=== PATIENT | male | born 1990 | race Caucasian/White ===

== ENCOUNTER 2020-08-07 17:26 | Emergency (ER) | payer SELFPAY ==
[2020-08-07 17:41] VITALS: BP 152/65; PULSE 118; RESP 18; TEMP 37.5; O2SAT 95; BMI 30.9
--- NOTE | 2020-08-07 17:53 | XRR_ITS ---
PROCEDURE INFORMATION: Exam: XR Chest Exam date and time: 08/07/2020 6:00 PM Age: 30 years old Clinical indication: Fever TECHNIQUE: Imaging protocol: XR of the chest. Views: 1 view. COMPARISON: No relevant prior studies available. FINDINGS: Lungs: Unremarkable. No consolidation. Pleural spaces: Unremarkable. No pleural effusion. No pneumothorax. Heart/Mediastinum: Unremarkable. No cardiomegaly. Bones/joints: Unremarkable. XR/XR chest 1V portable [id number] IMPRESSION: No acute findings.
--- NOTE | 2020-08-07 18:10 | ED_ITS ---
HPI - General Adult General: Chief complaint: General Medical Stated complaint: DIZZY, JUST FEELS SICK Time Seen by Provider: 08/07/20 17:44 Source: patient and RN notes reviewed Mode of arrival: ambulatory Limitations: no limitations History of Present Illness: HPI narrative: 30-year-old male reports he is an IV drug abuser. He reports shooting up in his right medial ankle. He does reuse needles although he does not share them with anyone else. He reports to me he has a history of MSSA infection in his hip. On arrival the patient reports not feeling well for the last 5 days. He was noted to have a low-grade temperature and tachycardia on arrival. His last use of heroin/methamphetamine was last night. He reports that he is used to not feeling well from injecting drugs but this feels like something different. Unrelated to his main concern, he has a blister on his lower lip that he believes is from biting his lip while he is high. Patient has lost his left great toenail and right second toenail. He is unsure why. He feels like he has some swelling on the top of both of his feet. He denies any sore or swollen joints. He does not recall having night s weats. He has dentures and does not report any recent dental procedures. Patient denies cough, shortness of breath, abdominal pain, dysuria, diarrhea, coughing, chest pain. Associated symptoms: Reports diaphoresis; Deny chest pain, dyspnea, headache(s), nausea, palpitations, syncope or vomiting Review of Systems General: Reports: 10 or more systems reviewed and unremarkable except in HPI and below and Other (Review of systems is negative except as documented below.) Const: Reports: chills, body aches, fatigue and diaphoresis ENMT: Reports: oral sores and dry mouth; Denies: throat pain, bleeding gums or dental pain Card: Reports: swelling of feet/ankles; Denies: chest pain, palpitations, irregular heart rhythm, edema, lightheadedness or syncope Resp: Denies: dyspnea, productive cough, non-productive cough, pain on inspiration or hemoptysis GI: Denies: abdominal pain, nausea, vomiting, hematemesis, diarrhea or constipation : Denies: flank pain, dysuria, urinary frequency or urinary urgency Musc: Denies: neck pain, back pain, extremity pain, extremity swelling, joint pain, joint swelling, joint redness, joint warmth, limited range of motion or muscle weakness Skin/Breast: Reports: other (Patient points to a few scabs on the right medial ankle where he has inject) Neuro: Denies: headache(s), weakness in extremities, difficulty walking or seizure-like activity Psych: Reports: anxiety and irritability James/Lymph: Denies: easy bruising, easy bleeding, petechiae, purpura or enlarged lymph nodes Physical Exam Const: COMMON NORMALS: average body habitus, no limitations, alert and well nourished EXAM LIMITATIONS: no altered mental status GENERAL APPEARANCE: cooperative, well kempt, well developed and anxious NUTRITIONAL APPEARANCE: overweight ORIENTATION/CONSCIOUSNESS: Yes awake; not confused HENMT: COMMON NORMALS: normocephalic, atraumatic, external ears normal and Normal external nose present HEAD & SCALP: normal to inspection, normocephalic and atraumatic FACE & SINUS: normal facial exam and face symmetric NOSE: Normal external nose present EXTERNAL EAR: Yes external ears normal MOUTH: Normal oral and palatal mucosa present and tongue normal; lip not normal (blister bottom lip), no drooling, no mouth trauma, no muffled voice and no trismus TEETH & GINGIVA: Yes dentures THROAT: posterior oropharynx normal, tonsils normal and uvula midline Eye: COMMON NORMALS: EOMs intact bilaterally and conjunctivae normal GENERAL EYE: appearance normal, both eyes and all related structures CONJUNCTIVA: Yes conjunctivae normal Neck/C-Spine: COMMON NORMALS: no meningeal signs and no JVD GENERAL: Yes normal visual inspection and Yes trachea midline Resp: COMMON NORMALS: normal respiratory effort, No use of accessory muscles and clear to auscultation bilaterally EFFORT & INSPECTION: Yes able to speak in complete sentences and Yes symmetric chest movement AUSCULTATION: clear to auscultation bilaterally Cardio: COMMON NORMALS: no JVD and regular rhythm RATE: tachycardic RHYTHM: regular rhythm PERIPHERAL PULSES: radial pulses present GI: COMMON NORMALS: Soft to palpation INSPECTION: Yes normal to inspection PALPATION: Yes Soft to palpation, No Tenderness to palpation present (GI) and No Guarding due to palpation present (GI) Back/Pelvis: COMMON NORMALS: thoraco-lumbar ROM normal Extremity: COMMON NORMALS: normal to inspection GENERAL: Yes normal exam except as noted Neuro: COMMON NORMALS: moves all extremities, no focal motor deficits and no sensory deficits noted SENSORIUM/ORIENTATION: Yes alert and No Orientation impaired MENINGEAL SIGNS: Yes no meningeal signs CRANIAL NERVES: Yes CN normal except as noted SPEECH: speech normal Psych: COMMON NORMALS: mental status grossly normal, Normal thought process present, cooperative and normal affect APPEARANCE: Yes well kempt ATTITUDE: Yes engaged ACTIVITY/MOTOR BEHAVIOR: Yes psychomotor agitation and Yes restless SPEECH: Yes rapid THOUGHT PROCESS: Normal thought process present THOUGHT CONTENT: Yes Normal thought content present Skin: COMMON NORMALS: no rashes or lesions noted, turgor normal and no jaundice GENERAL SKIN EXAM: no rashes or lesions noted and turgor normal Course Vital Signs: Vital signs: Vital Signs Temperature 99.5 F 08/07/20 17:41 Pulse Rate 115 H 08/07/20 18:55 Respiratory Rate 17 08/07/20 18:55 Blood Pressure 152/65 08/07/20 17:41 Pulse Oximetry 95 08/07/20 18:55 MDM - General Adult MDM Narrative: Medical decision making narrative: Patient's report of not feeling well is vague and and there is a large differential diagnosis. The patient is an IV drug abuser with tachycardia and low-grade fever. The low- grade fever could simply be from sympathomimetic toxidrome. However, it may also be from bacteremia, endocarditis, HIV, hepatitis, coronavirus, and many other etiologies. The patient has consented to septic work-up and to include a hepatitis and HIV panel. Lab Data: Attestation: I reviewed the patient's lab results. Labs: Lab Results 08/07/20 08/07/20 08/07/20 Range/Units 18:30 18:30 18:30 WBC 9.5 (4.0-10.0) 10^3/ uL RBC 4.22 (4.1-5.3) 10^6/u L Hgb 12.4 (11.7-16.6) g/dL Hct 37.2 L (42.0-52.0) % MCV 88.2 (80-94) fL MCH 29.4 (28.0-34.0) pg MCHC 33.3 (30.0-36.0) g/dL RDW 12.8 (12.1-15.1) % Plt Count 218 (130-400) 10^3/c mm MPV 10.1 (7.4-10.4) fL Neut % (Auto) 80.6 % Lymph % (Auto) 10.2 % [place] % (Auto) 7.7 % Eos % (Auto) 0.9 % Baso % (Auto) 0.3 % Neut # (Auto) 7.68 (1.8-7.7) 10^3/u L Lymph # (Auto) 1.0 (0.8-4.8) 10^3/u L [place] # (Auto) 0.7 (0.2-0.9) 10^3/u L Eos # (Auto) 0.1 (0.0-0.8) 10^3/u L Baso # (Auto) 0.0 (0.0-0.1) 10^3/u L Nucleated RBC % (a uto) 0 % Nucleated RBCs # 0.0 /100WBC Sodium 131 L (136-145) mmol/L Potassium 3.9 (3.5-5.1) mmol/L Chloride 92 L (98-107) mmol/L Carbon Dioxide 23 (22-29) mmol/L Anion Gap 19.9 H (5-19) BUN 16 (6-20) mg/dL Creatinine 0.8 (0.7-1.2) mg/dL GFR Calculation 113.5 (90-130) mL/min Glucose 75 (65-115) mg/dL Calculated Osmolal ity 272 L (285-295) mOsm/k g Lactic Acid 1.2 (0.5-2.2) mmol/L Calcium 8.7 (8.5-10.5) mg/dL Total Bilirubin 1.6 H (0.15-1.2) mg/dL AST 79 H (0-40) U/L ALT 72 H (0-41) U/L Alkaline Phosphata se 104 (40-130) IU/L Total Protein 6.9 (6.6-8.7) g/dL Albumin 4.1 (3.5-5.2) g/dL Globulin 2.8 (1.3-4.6) g/dL HIV 1&2 Ab & HIV 1 Ag (Non-Reactiv) HIV 1&2 Antibody (Non-Reactiv) 08/07/20 Range/Units 18:30 WBC (4.0-10.0) 10^3/ uL RBC (4.1-5.3) 10^6/u L Hgb (11.7-16.6) g/dL Hct (42.0-52.0) % MCV (80-94) fL MCH (28.0-34.0) pg MCHC (30.0-36.0) g/dL RDW (12.1-15.1) % Plt Count (130-400) 10^3/c mm MPV (7.4-10.4) fL Neut % (Auto) % Lymph % (Auto) % [place] % (Auto) % Eos % (Auto) % Baso % (Auto) % Neut # (Auto) (1.8-7.7) 10^3/u L Lymph # (Auto) (0.8-4.8) 10^3/u L [place] # (Auto) (0.2-0.9) 10^3/u L Eos # (Auto) (0.0-0.8) 10^3/u L Baso # (Auto) (0.0-0.1) 10^3/u L Nucleated RBC % (a uto) % Nucleated RBCs # /100WBC Sodium (136-145) mmol/L Potassium (3.5-5.1) mmol/L Chloride (98-107) mmol/L Carbon Dioxide (22-29) mmol/L Anion Gap (5-19) BUN (6-20) mg/dL Creatinine (0.7-1.2) mg/dL GFR Calculation (90-130) mL/min Glucose (65-115) mg/dL Calculated Osmolal ity (285-295) mOsm/k g Lactic Acid (0.5-2.2) mmol/L Calcium (8.5-10.5) mg/dL Total Bilirubin (0.15-1.2) mg/dL AST (0-40) U/L ALT (0-41) U/L Alkaline Phosphata se (40-130) IU/L Total Protein (6.6-8.7) g/dL Albumin (3.5-5.2) g/dL Globulin (1.3-4.6) g/dL HIV 1&2 Ab & HIV 1 Ag Non-reactive (Non-Reactiv) HIV 1&2 Antibody Non-reactive (Non-Reactiv) Imaging Data^: CXR: Attestation: I personally reviewed and interpreted this imaging study as follows: My impression: Slightly rotated, no acute pathology noted, no infiltrates to suggest cause of fever Discharge Plan Discharge Prescriptions: No Action duloxetine [Cymbalta] 60 mg capsule,delayed release(DR/EC) 60 mg PO BID RF: 0 gabapentin 600 mg tablet 600 mg PO BID RF: 0 olanzapine [Zyprexa] 5 mg tablet 5 mg PO DAILY RF: 0 trazodone 50 mg tablet 50 mg PO DAILY RF: 0 lorazepam [Ativan] 2 mg tablet 2 mg PO Q8H PRN (Reason: Anxiety) RF: 0 buspirone 30 mg tablet 40 mg PO ONCE RF: 0 Coding Level of Care Code ED Music Instructor for John Fwd Exam Comprehensive
[2020-08-07] MEDS: acetaminophen 500 mg Tablet 1000 MG PO (18:48)
[2020-08-07 18:52] LABS: Basophils % 0.3 %; Eosinophils # 0.1 10^3/uL (0.0-0.8); Eosinophils % 0.9 %; Hematocrit 37.2 % (42.0-52.0); Hemoglobin 12.4 g/dL (11.7-16.6); Lymphocytes % 10.2 %; Mean Corpuscular HGB Conc 33.3 g/dL (30.0-36.0); Mean Corpuscular Hemoglobin 29.4 pg (28.0-34.0); Mean Corpuscular Volume 88.2 fL (80-94); Mean Platelet Volume 10.1 fL (7.4-10.4); Monocytes # 0.7 10^3/uL (0.2-0.9); Monocytes % 7.7 %; Neutrophils # 7.68 10^3/uL (1.8-7.7); Neutrophils % 80.6 %; Nucleated Red Blood Cells % 0 %; Platelet Count 218 10^3/cmm (130-400); Red Blood Count 4.22 10^6/uL (4.1-5.3); Red Cell Distribution Width 12.8 % (12.1-15.1); White Blood Count 9.5 10^3/uL (4.0-10.0)
[2020-08-07 18:55] VITALS: PULSE 115; RESP 17; O2SAT 95
[2020-08-07 19:12] LABS: Alanine Aminotransferase 72 U/L (0-41); Albumin Level 4.1 g/dL (3.5-5.2); Alkaline Phosphatase 104 IU/L (40-130); Anion Gap 19.9 (5-19); Aspartate Amino Transferase 79 U/L (0-40); Blood Urea Nitrogen 16 mg/dL (6-20); Calcium 8.7 mg/dL (8.5-10.5); Carbon Dioxide 23 mmol/L (22-29); Chloride 92 mmol/L (98-107); Globulin 2.8 g/dL (1.3-4.6); Glomerular Filtration Rate 113.5 mL/min (90-130); Glucose 75 mg/dL (65-115); Lactic Sepsis W/Reflex 1.2 mmol/L (0.5-2.2); Osmolality Calculated 272 mOsm/kg (285-295); Potassium 3.9 mmol/L (3.5-5.1); Sodium 131 mmol/L (136-145); Total Bilirubin 1.6 mg/dL (0.15-1.2); Total Protein 6.9 g/dL (6.6-8.7)
[2020-08-07 19:28] LABS: HIV 1 & 2 Antibody Non-Reactive (Non-Reactiv); HIV 1 & 2 Antigen Non-Reactive (Non-Reactiv)
--- NOTE | 2020-08-07 19:38 | W.ED.GENADLT ---
HPI - General Adult General: Chief complaint: General Medical Stated complaint: DIZZY, JUST FEELS SICK Time Seen by Provider: 08/07/20 17:44 Source: patient and RN notes reviewed Mode of arrival: ambulatory Limitations: no limitations Course ED course: Patient continues to show signs of sympathomimetic toxidrome included rapid pressured speech, physical restlessness, tachycardia, mydriasis, etc. WBC normal. ASt/ALT mildly elevated. Pending is COVID and Hepatitis panel. Patient getting 2L of LR and dose of vancomycin. Blood cultures pending. His low grade fever could simply be meth abuse rather than acute infection. Plan to d/c on antibiotics after IVF. Vital Signs: Vital signs: Vital Signs Temperature 99.5 F 08/07/20 17:41 Pulse Rate 115 H 08/07/20 18:55 Respiratory Rate 17 08/07/20 18:55 Blood Pressure 152/65 08/07/20 17:41 Pulse Oximetry 95 08/07/20 18:55 MDM - General Adult Lab Data: Attestation: I reviewed the patient's lab results. Labs: Lab Results 08/07/20 08/07/20 08/07/20 Range/Units 18:30 18:30 18:30 WBC 9.5 (4.0-10.0) 10^3/ uL RBC 4.22 (4.1-5.3) 10^6/u L Hgb 12.4 (11.7-16.6) g/dL Hct 37.2 L (42.0-52.0) % MCV 88.2 (80-94) fL MCH 29.4 (28.0-34.0) pg MCHC 33.3 (30.0-36.0) g/dL RDW 12.8 (12.1-15.1) % Plt Count 218 (130-400) 10^3/c mm MPV 10.1 (7.4-10.4) fL Neut % (Auto) 80.6 % Lymph % (Auto) 10.2 % [place] % (Auto) 7.7 % Eos % (Auto) 0.9 % Baso % (Auto) 0.3 % Neut # (Auto) 7.68 (1.8-7.7) 10^3/u L Lymph # (Auto) 1.0 (0.8-4.8) 10^3/u L [place] # (Auto) 0.7 (0.2-0.9) 10^3/u L Eos # (Auto) 0.1 (0.0-0.8) 10^3/u L Baso # (Auto) 0.0 (0.0-0.1) 10^3/u L Nucleated RBC % (a uto) 0 % Nucleated RBCs # 0.0 /100WBC Sodium 131 L (136-145) mmol/L Potassium 3.9 (3.5-5.1) mmol/L Chloride 92 L (98-107) mmol/L Carbon Dioxide 23 (22-29) mmol/L Anion Gap 19.9 H (5-19) BUN 16 (6-20) mg/dL Creatinine 0.8 (0.7-1.2) mg/dL GFR Calculation 113.5 (90-130) mL/min Glucose 75 (65-115) mg/dL Calculated Osmolal ity 272 L (285-295) mOsm/k g Lactic Acid 1.2 (0.5-2.2) mmol/L Calcium 8.7 (8.5-10.5) mg/dL Total Bilirubin 1.6 H (0.15-1.2) mg/dL AST 79 H (0-40) U/L ALT 72 H (0-41) U/L Alkaline Phosphata se 104 (40-130) IU/L Total Protein 6.9 (6.6-8.7) g/dL Albumin 4.1 (3.5-5.2) g/dL Globulin 2.8 (1.3-4.6) g/dL HIV 1&2 Ab & HIV 1 Ag (Non-Reactiv) HIV 1&2 Antibody (Non-Reactiv) 08/07/20 Range/Units 18:30 WBC (4.0-10.0) 10^3/ uL RBC (4.1-5.3) 10^6/u L Hgb (11.7-16.6) g/dL Hct (42.0-52.0) % MCV (80-94) fL MCH (28.0-34.0) pg MCHC (30.0-36.0) g/dL RDW (12.1-15.1) % Plt Count (130-400) 10^3/c mm MPV (7.4-10.4) fL Neut % (Auto) % Lymph % (Auto) % [place] % (Auto) % Eos % (Auto) % Baso % (Auto) % Neut # (Auto) (1.8-7.7) 10^3/u L Lymph # (Auto) (0.8-4.8) 10^3/u L [place] # (Auto) (0.2-0.9) 10^3/u L Eos # (Auto) (0.0-0.8) 10^3/u L Baso # (Auto) (0.0-0.1) 10^3/u L Nucleated RBC % (a uto) % Nucleated RBCs # /100WBC Sodium (136-145) mmol/L Potassium (3.5-5.1) mmol/L Chloride (98-107) mmol/L Carbon Dioxide (22-29) mmol/L Anion Gap (5-19) BUN (6-20) mg/dL Creatinine (0.7-1.2) mg/dL GFR Calculation (90-130) mL/min Glucose (65-115) mg/dL Calculated Osmolal ity (285-295) mOsm/k g Lactic Acid (0.5-2.2) mmol/L Calcium (8.5-10.5) mg/dL Total Bilirubin (0.15-1.2) mg/dL AST (0-40) U/L ALT (0-41) U/L Alkaline Phosphata se (40-130) IU/L Total Protein (6.6-8.7) g/dL Albumin (3.5-5.2) g/dL Globulin (1.3-4.6) g/dL HIV 1&2 Ab & HIV 1 Ag Non-reactive (Non-Reactiv) HIV 1&2 Antibody Non-reactive (Non-Reactiv) Imaging Data^: CXR: Radiologist's impression: Neg Discharge Plan Discharge Patient Disposition: Home Clinical Impression: Adverse reaction to sympathomimetics, Low grade fever, Transaminitis Condition: Stable Prescriptions: New doxycycline monohydrate 100 mg tablet 100 mg PO BID 10 Days Qty: 20 RF: 0 No Action duloxetine [Cymbalta] 60 mg capsule,delayed release(DR/EC) 60 mg PO BID RF: 0 gabapentin 600 mg tablet 600 mg PO BID RF: 0 olanzapine [Zyprexa] 5 mg tablet 5 mg PO DAILY RF: 0 trazodone 50 mg tablet 50 mg PO DAILY RF: 0 lorazepam [Ativan] 2 mg tablet 2 mg PO Q8H PRN (Reason: Anxiety) RF: 0 buspirone 30 mg tablet 40 mg PO ONCE RF: 0 Discharge Diet: Usual diet Discharge Activity: Resume usual activity Patient Instructions: Opioid Safety, Methamphetamine Abuse (ED), Fever - Adult Activity Restrictions/Additional Instructions: 1) Take antibiotics as prescribed. 2) Make a follow-up appointment in one 3-5 days to discuss results of your hepatitis panel and blood cultures. 3.) Stop using drugs, especially in the veins as it is a huge risk factor for serious infections. 4.) Return to ER if getting worse. Coding Level of Care Code ED Dry Cleaning Teacher for John Lyn
[2020-08-07 20:27] LABS: SARS Covid-2 Antigen Negative (Negative)
[2020-08-07 20:32] VITALS: BP 141/81; PULSE 110; RESP 18; O2SAT 97
[2020-08-07 21:19] VITALS: BP 139/68; PULSE 105; RESP 17; O2SAT 96
[2020-08-07 22:01] LABS: Hepatitis A Antibody IgM Non-Reactive (Nonreactive); Hepatitis B Core AB, Total Non-Reactive (Nonreactive); Hepatitis B Surface AB 9.1 (11.5-1000); Hepatitis B Surface Antigen Non-Reactive (Nonreactive); Hepatitis C Virus Antibody Non-Reactive (Nonreactive)
--- NOTE | 2020-08-08 10:23 | DCPLANNER ---
client service and consulting manager had message to speak with patient about getting established with a primary care physician. client service and consulting manager spoke with patient, he stated that he did want help in getting established with a primary care physician but that he does not have any insurance at this time. client service and consulting manager offered to mail patient the financial analyst intern paperwork for the hospital to fill out and turn back in. client service and consulting manager explained to patient that case advocate could schedule a follow up appointment with a primary care physician at this time or patient could wait until he gets the financial analyst intern paperwork filled out and see where he is with financial analyst intern and then schedule a follow up appointment. Patient stated that he would fill out the paperwork and see where he is at before scheduling an appointment. client service and consulting manager will mail patient both of the financial analyst intern applications to fill out and turn in.
== END 2020-08-07 21:15 | disposition home or self-care (01) ==
PROVIDERS: Emergency Provider Emergency Medicine
DX: R42 Dizziness and giddiness (principal)
CPT/HCPCS: 71045; 80053; 83605; 85025; 86705; 86706; 86709; 86803; 87040; 87340; 87426; 87641; 87806; 96365; 96366; 99284; J3370; J7040

== ENCOUNTER → 2020-08-15 10:56 | Outpatient (BNVA) | payer OTHER, SELFPAY | PROVIDERS: Visit Provider Nurse Practitioner Psychiatric/Mental Health | DX: Z79.899 Other long term (current) drug therapy (principal) | CPT/HCPCS: 80061; 83036 ==

== ENCOUNTER 2020-10-05 13:05 | Emergency (ER) | payer SELFPAY ==
[2020-10-05 13:12] VITALS: BP 140/84; PULSE 118; RESP 15; TEMP 36.7; O2SAT 95; BMI 30.3
[2020-10-05 16:18] VITALS: O2SAT 97
--- NOTE | 2020-10-05 17:06 | W.ED.SKABFB ---
HPI - Skin/Abscess/Foreign Bdy General: Chief complaint: Skin/Abscess/Foreign Body Stated complaint: SWOLLEN LEGS AND FEET Time Seen by Provider: 10/05/20 13:23 History of Present Illness: HPI narrative: The patient is a 30-year-old male past medical history of IV meth injector comes to the ER complaining of swelling in his feet, cellulitis, and scabs. He is worried he has a blood clot. He says he ran out of vein so he found an artery in his foot and started injecting it. He points to his dorsalis pedis bilaterally which has scabs there. He has clear cellulitis to his feet tracking up his legs. The redness started a day and a half ago he says MD complaint: rash Onset (ago): hour(s) (36) Location: L foot and R foot Severity: moderate Quality: burning and sharp Review of Systems General: Reports: 10 or more systems reviewed and unremarkable except in HPI and below Const: Denies: fatigue Eyes: Denies: change in vision, blurry vision or eye redness ENMT: Denies: throat pain, swelling of lips/tongue, ear or mastoid pain or nasal congestion Card: Denies: chest pain, palpitations, irregular heart rhythm, edema, dyspnea on exertion or orthopnea Resp: Denies: dyspnea, productive cough or non-productive cough GI: Denies: abdominal pain, diarrhea or GI cramping : Denies: flank pain, urinary frequency or urinary urgency Musc: Denies: neck pain, back pain, extremity pain, joint pain, joint redness, limited range of motion or muscle weakness Skin/Breast: Reports: rash, pruritus, erythema and sores; Denies: skin pain or skin tenderness Neuro: Denies: headache(s), numbness in extremities, weakness in extremities, sensory changes, difficulty walking, dizziness, confusion or Slurred speech present Psych: Denies: anxiety or depression Endo: Denies: polyuria All/Imm: Denies: urticaria, throat swelling or tongue swelling [facility] ED PFSH: Medical History (Updated 10/05/20 @ 19:57 by Jamison Norris MD) Generalized anxiety disorder Major depressive disorder, recurrent severe without psychotic features Opioid dependence, in remission Sustained remission, last use prior to November 2018 Other stimulant dependence, in remission Methamphetamines, IV use, in early remission, last use 08/06/20 Social History (Updated 08/15/20 @ 09:38 by Brenda Mac LPN) Smoking and tobacco status: current every day smoker e-cigarettes E-Cigarette Details: vaporizer device E-cig/vape details: 6mg per 100ml every 2 weeks Quit status (tobacco): not considering quitting Second hand smoke exposure: No Physical Exam Narrative: EXAM NARRATIVE: Patient fidgets and cannot hold still likely from methamphetamine chronic abuse. Const: COMMON NORMALS: no acute distress, average body habitus, patient oriented x3, no limitations, alert and well nourished GENERAL APPEARANCE: cooperative, well developed and disheveled ORIENTATION/CONSCIOUSNESS: Yes awake, Yes oriented to person, Yes oriented to place and Yes oriented to time HENMT: COMMON NORMALS: normocephalic, external ears normal and Normal external nose present HEAD & SCALP: normal to inspection and normocephalic NOSE: Normal external nose present EXTERNAL EAR: Yes external ears normal MOUTH: Normal oral and palatal mucosa present THROAT: posterior oropharynx normal Eye: COMMON NORMALS: Equal, round and reactive pupils present and EOMs intact bilaterally GENERAL EYE: appearance normal, both eyes and all related structures PUPIL: Yes Equal, round and reactive pupils present Neck/C-Spine: COMMON NORMALS: full ROM, no lymphadenopathy, no meningeal signs and no JVD GENERAL: Yes normal visual inspection Lymph: LYMPHATIC: no lymphadenopathy noted Chest: COMMONS NORMALS: normal inspection of the chest and normal palpation of entire chest wall Resp: COMMON NORMALS: normal respiratory effort, No retractions, No use of accessory muscles, clear to auscultation bilaterally and percussion normal EFFORT & INSPECTION: Yes able to speak in complete sentences AUSCULTATION: clear to auscultation bilaterally PERCUSSION: percussion normal Cardio: COMMON NORMALS: no JVD, regular rate, regular rhythm, S1 normal heart sound present, S2 normal heart sound present and Peripheral pulses 2+ throughout RATE: regular rate RHYTHM: regular rhythm HEART SOUNDS: S1 normal heart sound present and S2 normal heart sound present PERIPHERAL PULSES: Peripheral pulses 2+ throughout GI: COMMON NORMALS: Normal to inspection, nondistended, normoactive bowel sounds present, Soft to palpation, non-tender and no masses INSPECTION: Yes normal to inspection PALPATION: Yes Soft to palpation : COMMON NORMALS: Yes no CVA tenderness BLADDER/KIDNEY EXAM: Yes no CVA tenderness Back/Pelvis: COMMON NORMALS: no CVA tenderness, thoracic and lumbar spine normal to inspection, no thoracic nor lumbar tenderness and thoraco-lumbar ROM normal Extremity: COMMON NORMALS: normal to inspection, full ROM, capillary refill normal, no joint enlargement and no pedal edema GENERAL: Yes normal exam except as noted Neuro: COMMON NORMALS: patient oriented x3, CN's II-XII intact bilaterally, moves all extremities, no focal motor deficits, no sensory deficits noted and gait normal SENSORIUM/ORIENTATION: Yes alert, Yes oriented to person, Yes oriented to place and Yes oriented to time MENINGEAL SIGNS: Yes no meningeal signs Psych: COMMON NORMALS: mental status grossly normal, Normal thought process present, cooperative, normal affect and speech normal ATTITUDE: Yes calm SPEECH: Yes normal speech THOUGHT PROCESS: Normal thought process present Skin: COMMON NORMALS: no rashes or lesions noted NARRATIVE SKIN EXAM: Patient has cellulitis to bilateral feet with some swelling there. Also tracking up his legs he has cellulitis to mid to proximal calf bilaterally. He has scabs on his feet at least 5 to 10 per foot including over his dorsalis pedis area bilaterally. Cap refill is good on his feet and he is able to move them. He says they hurt to walk on but is neurovascularly intact. Also scattered scabs on his upper extremities GENERAL SKIN EXAM: no rashes or lesions noted Course Vital Signs: Vital signs: Vital Signs Temperature 98.1 F 10/05/20 13:12 Pulse Rate 104 H 10/05/20 19:14 Respiratory Rate 22 H 10/05/20 19:14 Blood Pressure 118/86 10/05/20 19:14 Pulse Oximetry 98 10/05/20 19:14 MDM - Skin/Abscess/Foreign Bdy MDM Narrative: Medical decision making narrative: Patient comes to the ER with bilateral lower extremity cellulitis from injecting IV methamphetamines. Had a long talk with him about cessation of IV drug use and altogether drug use. He is resistant and says he is addicted. I encouraged him to seek treatment and recommended he follow-up with primary care physician. Ultrasound negative for DVT. He was given a dose of vancomycin and discharged with Bactrim. ER with worsening symptoms at any time Lab Data: Labs: Lab Results 10/05/20 10/05/20 10/05/20 Range/Units 17:58 17:58 17:58 WBC 10.4 H (4.0-10.0) 10^3/ uL RBC 3.75 L (4.1-5.3) 10^6/u L Hgb 10.6 L (11.7-16.6) g/dL Hct 33.7 L (42.0-52.0) % MCV 89.9 (80-94) fL MCH 28.3 (28.0-34.0) pg MCHC 31.5 (30.0-36.0) g/dL RDW 14.2 (12.1-15.1) % Plt Count 223 (130-400) 10^3/c mm MPV 10.5 H (7.4-10.4) fL Neut % (Auto) 81.2 % Lymph % (Auto) 11.7 % Toole % (Auto) 4.7 % Eos % (Auto) 1.9 % Baso % (Auto) 0.3 % Neut # (Auto) 8.45 H (1.8-7.7) 10^3/u L Lymph # (Auto) 1.2 (0.8-4.8) 10^3/u L Toole # (Auto) 0.5 (0.2-0.9) 10^3/u L Eos # (Auto) 0.2 (0.0-0.8) 10^3/u L Baso # (Auto) 0.0 (0.0-0.1) 10^3/u L Nucleated RBC % (a uto) 0 % Nucleated RBCs # 0.0 /100WBC Sodium Cancelled Potassium Cancelled Chloride Cancelled Carbon Dioxide Cancelled Anion Gap Cancelled BUN Cancelled Creatinine Cancelled GFR Calculation Cancelled Glucose Cancelled Calculated Osmolal ity Cancelled Lactic Acid 0.7 (0.5-2.2) mmol/L Calcium Cancelled Total Bilirubin Cancelled AST Cancelled ALT Cancelled Alkaline Phosphata se Cancelled Total Protein Cancelled Albumin Cancelled Globulin Cancelled 10/05/20 Range/Units 19:14 WBC (4.0-10.0) 10^3/ uL RBC (4.1-5.3) 10^6/u L Hgb (11.7-16.6) g/dL Hct (42.0-52.0) % MCV (80-94) fL MCH (28.0-34.0) pg MCHC (30.0-36.0) g/dL RDW (12.1-15.1) % Plt Count (130-400) 10^3/c mm MPV (7.4-10.4) fL Neut % (Auto) % Lymph % (Auto) % Toole % (Auto) % Eos % (Auto) % Baso % (Auto) % Neut # (Auto) (1.8-7.7) 10^3/u L Lymph # (Auto) (0.8-4.8) 10^3/u L Toole # (Auto) (0.2-0.9) 10^3/u L Eos # (Auto) (0.0-0.8) 10^3/u L Baso # (Auto) (0.0-0.1) 10^3/u L Nucleated RBC % (a uto) % Nucleated RBCs # /100WBC Sodium 136 Potassium 3.4 L Chloride 99 Carbon Dioxide 23 Anion Gap 17.4 BUN 14 Creatinine 0.9 GFR Calculation 99.1 Glucose 72 Calculated Osmolal ity 281 L Lactic Acid (0.5-2.2) mmol/L Calcium 8.3 L Total Bilirubin 0.9 AST 36 ALT 22 Alkaline Phosphata se 102 Total Protein 6.8 Albumin 4.0 Globulin 2.8 Discharge Plan Discharge Patient Disposition: Home Clinical Impression: Cellulitis, Drug abuse, IV Condition: Stable Prescriptions: New Bactrim DS 800-160 mg tablet 1 tab PO BID 10 Days Qty: 20 RF: 0 No Action buspirone 10 mg tablet 10 mg PO TID Qty: 90 RF: 3 duloxetine [Cymbalta] 60 mg capsule,delayed release(DR/EC) 60 mg PO BID Qty: 60 RF: 3 gabapentin 600 mg tablet 600 mg PO BID Qty: 60 RF: 3 quetiapine [Seroquel] 100 mg tablet 100 mg PO .bedtime Qty: 30 RF: 3 buprenorphine-naloxone [Suboxone] 2-0.5 mg film 1 film buccal BID RF: 0 Discharge Orders: Discharge ED (Routine); Ordered 10/05/20 Ordered By: Jamison Norris Discharge Diet: Advance as tolerated Discharge Activity: Resume usual activity Patient Instructions: Cellulitis (ED), Methamphetamine Abuse (ED), Opioid Safety Activity Restrictions/Additional Instructions: Please discontinue use of all drugs including and especially IV use of any drugs. Please take the Bactrim to help with your infection and return to the ER at any time if your symptoms worsen. Follow-up with primary care physician in a few days to monitor improvement of your cellulitis and return to the ER at any time if you are not able to follow-up. Coding Level of Care Code ED Intake Clerk for John Fwnabeel Exam Comprehensive
--- NOTE | 2020-10-05 17:43 | USR_ITS ---
PROCEDURE INFORMATION: Exam: US Duplex Lower Extremity Veins, Bilateral Exam date and time: 10/05/2020 5:43 PM Age: 30 years old Clinical indication: Swelling (edema) of limb; Lower extremity, right and lower extremity, left; Additional info: R/O dvt TECHNIQUE: Imaging protocol: Real-time duplex ultrasound of the extremities with 2-D jean-baptiste scale, color Doppler flow and spectral waveform analysis with image documentation. Complete exam focused on the bilateral lower extremity veins. COMPARISON: No relevant prior studies available. FINDINGS: Right deep veins: Unremarkable. The common femoral, femoral, proximal profunda femoral and popliteal veins are patent without thrombus. Normal Doppler waveforms. Normal compressibility and/or augmentation response. Right superficial veins: Saphenofemoral junction is patent without thrombus. Left deep veins: Unremarkable. The common femoral, femoral, proximal profunda femoral and popliteal veins are patent without thrombus. Normal Doppler waveforms. Normal compressibility and/or augmentation response. Left superficial veins: Saphenofemoral junction is patent without thrombus. Soft tissues: Unremarkable. US/CV venous duplex [facility] [id number] IMPRESSION: Negative for deep venous thrombosis
[2020-10-05 18:05] LABS: Basophils % 0.3 %; Eosinophils # 0.2 10^3/uL (0.0-0.8); Eosinophils % 1.9 %; Hematocrit 33.7 % (42.0-52.0); Hemoglobin 10.6 g/dL (11.7-16.6); Lymphocytes # 1.2 10^3/uL (0.8-4.8); Lymphocytes % 11.7 %; Mean Corpuscular HGB Conc 31.5 g/dL (30.0-36.0); Mean Corpuscular Hemoglobin 28.3 pg (28.0-34.0); Mean Corpuscular Volume 89.9 fL (80-94); Mean Platelet Volume 10.5 fL (7.4-10.4); Monocytes # 0.5 10^3/uL (0.2-0.9); Monocytes % 4.7 %; Neutrophils # 8.45 10^3/uL (1.8-7.7); Neutrophils % 81.2 %; Nucleated Red Blood Cells % 0 %; Platelet Count 223 10^3/cmm (130-400); Red Blood Count 3.75 10^6/uL (4.1-5.3); Red Cell Distribution Width 14.2 % (12.1-15.1); White Blood Count 10.4 10^3/uL (4.0-10.0)
[2020-10-05 18:15] VITALS: BP 128/76; PULSE 107; RESP 25; O2SAT 97
[2020-10-05 18:22] LABS: Lactic Sepsis W/Reflex 0.7 mmol/L (0.5-2.2)
[2020-10-05] MEDS: vancomycin 1,000 MG in sodium chloride 0.9% 250 ML 250 MG IV (18:23)
[2020-10-05] MEDS: sodium chloride 0.9% 1,000 ML 999 ML IV (18:29)
[2020-10-05 18:38] VITALS: BP 114/66; PULSE 104; RESP 26; O2SAT 96
[2020-10-05 19:14] VITALS: BP 118/86; PULSE 104; RESP 22; O2SAT 98
[2020-10-05 19:34] LABS: Alanine Aminotransferase 22 U/L (0-41); Alkaline Phosphatase 102 IU/L (40-130); Anion Gap 17.4 (5-19); Aspartate Amino Transferase 36 U/L (0-40); Blood Urea Nitrogen 14 mg/dL (6-20); Calcium 8.3 mg/dL (8.5-10.5); Carbon Dioxide 23 mmol/L (22-29); Chloride 99 mmol/L (98-107); Creatinine Clr Calc Pharmacy 152.2183; Globulin 2.8 g/dL (1.3-4.6); Glomerular Filtration Rate 99.1 mL/min (90-130); Glucose 72 mg/dL (65-115); Osmolality Calculated 281 mOsm/kg (285-295); Potassium 3.4 mmol/L (3.5-5.1); Sodium 136 mmol/L (136-145); Total Bilirubin 0.9 mg/dL (0.15-1.2); Total Protein 6.8 g/dL (6.6-8.7)
[2020-10-05] MEDS: sulfamethoxazole-trimeth DS 160-800 mg Tablet 1 TAB PO (20:05)
[2020-10-05 20:12] VITALS: BP 115/75; PULSE 109; RESP 17; TEMP 36.7; O2SAT 96
== END 2020-10-05 20:14 | disposition home or self-care (01) ==
PROVIDERS: Emergency Provider Family Medicine
DX: L03.116 Cellulitis of left lower limb (principal); L03.115 Cellulitis of right lower limb; F11.10 Opioid abuse, uncomplicated
CPT/HCPCS: 36415; 80053; 83605; 85025; 87040; 93970; 96365; 99284; J3370; J7030; J7050

== ENCOUNTER 2021-01-10 11:39 | Outpatient (CLI) | payer SELFPAY ==
--- NOTE | 2021-01-10 11:46 | USCV_ITS ---
Cheo Chan Age: 30 Gender: M : 1990 Exam Date: 01/10/2021 12:03 Ordering Phys: Sony Loyola MD Technologist: Renee Alves [place] [facility] [place] BILATERAL LOWER EXTREMITY SWELLING HISTORY: Lower extremity swelling. PROCEDURES: Venous duplex imaging was performed in bilateral lower extremities. The following venous structures were evaluated: common femoral vein, profunda vein, proximal portion of the greater saphenous vein, superficial femoral vein, and the popliteal vein. In addition, the posterior tibial and peroneal trunk were evaluated. FINDINGS: Normal 2-D Doppler and augmentation and compressibility throughout the lower extremity venous structures. Additional imaging through the proximal calf veins also reveals no thrombus. Limited evaluation of the greater saphenous vein is patent with no thrombus.. CONCLUSIONS No evidence of right lower extremity DVT. No evidence of left lower extremity DVT. Juan C Carey MD (Electronically Signed) Final Date: 10 January 2021 16:34 S
== END 2021-01-10 11:40 | disposition home or self-care (01) ==
PROVIDERS: Visit Provider Family Medicine
DX: F19.11 Other psychoactive substance abuse, in remission; M79.89 Other specified soft tissue disorders
CPT/HCPCS: 93970